=== PATIENT | female | born 1940 | race Caucasian/White ===

== ENCOUNTER → 2019-10-31 | Outpatient (CLI) | payer MEDICARE, SELFPAY ==
--- NOTE | 2019-10-31 10:56 | CT_ITS ---
STUDY: CT ABDOMEN AND PELVIS WITHOUT CONTRAST REASON FOR EXAM: Female, 79 years old. RT SIDED KS, HAVING NO PAIN, MARILYNN/BSO, SCOTTY, HTN RADIATION DOSAGE (If Supplied By Facility): CTDIvol = ( 14.24 ) mGy, DLP = ( 666.45 ) mGycm TECHNIQUE: Transaxial images were obtained from the dome of the diaphragm to the symphysis pubis without oral contrast, and without intravenous contrast. Sagittal and coronal images were reconstructed. Individualized dose optimization techniques were used for this CT. COMPARISON: None. FINDINGS: Mild degree of bronchiectasis at the lung bases. The visualized portions of the heart are within normal limits. Normal liver. There are surgical clips in the gallbladder fossa consistent with a prior cholecystectomy. Normal spleen. Normal pancreas. Normal bilateral adrenal glands. There is a 4 mm calculus in the upper pole calyx of the right kidney. There is a 7.3 mm calculus in the distal portion of the right ureter just proximal to the right ureterovesical junction. There is evidence of a left parapelvic cyst measuring 3.5 cm x 2.6 cm. There is a small hiatal hernia. Normal small intestine. Normal colon. The appendix is visualized and appears normal. There is diffuse atherosclerotic calcification of the abdominal aorta, without a demonstrated aneurysm. Normal inferior vena cava. There is borderline retroperitoneal lymphadenopathy with enlarged nodes no greater than 10mm in the short axis diameter. Normal urinary bladder. There is absence of the uterus consistent with a prior hysterectomy. There is a right-sided inguinal hernia containing adipose tissue. Mild degree of disc space narrowing at the L5-S1 level. CT/Abdomen/Pelvis without Cont IMPRESSION: 7.3 mm calculus in the distal portion of the right ureter just proximal to the right ureterovesical junction. Nonobstructive right intrarenal calculus. Left parapelvic renal cyst. Electronically Signed: Chris Samuel, at 12:08 EDT , Service support ,
== END | disposition home or self-care (01) ==
PROVIDERS: PCP Family Medicine; Referring Provider Nurse Practitioner Adult Health; Visit Provider Nurse Practitioner Adult Health
DX: N13.2 Hydronephrosis with renal and ureteral calculous obstruction (principal)
CPT/HCPCS: 74176; 82360

== ENCOUNTER 2019-11-08 07:13 | Day surgery (SDC) | payer MEDICARE, SELFPAY ==
[2019-11-08] VITALS (8 sets, daily range): BP systolic 140–163; BP diastolic 58–87; PULSE 66–84; RESP 14–17; TEMP 35.8–36.6; O2SAT 95–99; BMI 30.9
[2019-11-08] MEDS: Lactated Ringers 1,000 ML 100 ML IV (08:05)
--- NOTE | 2019-11-08 09:20 | CALC_PTH ---
PATIENT: MELBA FRYE [place] [facility] [place][id number] AGE/SX: 79/F ROOM: RE11/08/[address]: Dr. Raj Dumont MD : [id number] BED: DIS: 11/08/2019 SPEC #: [id number] RECD: 11/08/19 15:00 STATUS: ERNESTINE LEANDRA #: [id number] ERIC: 11/08/19 09:[address]: Raj Dumont DEPT: SURGICAL PATHOLOGY RECD BY: Real Nicholson ENTERED: 11/09/19 09:36 SP TYPE: Calculi OTHR DR: Dr. David Robles MD Tissues: CALCULI Procedures: Surgery Specimen Level I HEADER OPERATION: Cysto, ureteroscopy, laser, stent PRE-OP DIAGNOSIS: Stone distal right ureter, hydronephrosis TISSUE SUBMITTED: Calculi GROSS DIAGNOSIS Fragments of stone, clinically stone distal right ureter, submitted entirely for analysis. SJ:velia 11/09/19 COMMENT The calculus is submitted in its entirety for chemical stone analysis. The results from this study will be reported separately. GROSS DESCRIPTION Received in saline is one container labeled with the patient's name and designated right calculi for stone analysis. The specimen consists of multiple fragments of stone that in aggregate measure 1.5 x 0.3 x 0.1 cm. The entire specimen is submitted for stone analysis. / SAMEERA:velia 11/09/19 CPT: 74737
[2019-11-08] MEDS: Cefazolin 2 GM in 0.9% Normal Saline 100 ML IV (09:47)
--- NOTE | 2019-11-08 10:41 | PCM.HP.STD ---
Problem List (1) Right ureteral calculus Status: Acute History of Present Illness Date of Admission: 11/08/19 Chief Complaint: Right ureteral calculi The patient is a 79 year old female who presented with obstructing stone in distal right ureter today with plan proceed with ureteroscopy and laser lithotripsy and stent placement on the right side. Past Medical History Allergies erythromycin base Allergy (Verified 11/06/19 11:41) Itching EYE OINTMENT Home Medications: Ambulatory Orders Medication Instructions Recorded Aspirin E.C. [Ecotrin] 81 mg PO DAILY@0800 11/06/19 Cholecalciferol (Vitamin D3) 1 tab PO DAILY 11/06/19 [Vitamin D3] Diltiazem HCl [Diltiazem 24Hr ER] 300 mg PO DAILY 11/06/19 Glucosamine HCl 1,000 mg PO DAILY 11/06/19 Smoking Status: Never smoker Tobacco Use: Non-smoker Review of Systems Constitutional: Denies: Chills, Fever, Weight Change HEENT: Denies: Head Aches, Sinus Congestion, Sinus Drainage Cardiovascular: Denies: Chest Pain, Palpitations Respiratory: Denies: Cough, Shortness of breath at rest, Sputum production Gastrointestinal: Denies: Abdominal Pain, Nausea, Vomiting Genitourinary: Denies: Dysuria Musculoskeletal: Denies: Joint Pain, Joint Tenderness Skin: Denies: Rash, Wounds Neurological: Denies: Numbness, Tingling, Focal weakness Psychiatric: Denies: Anxiety, Depression, Homicidal Ideations, Suicidal Ideations Hematologic/ Lymphatic: Denies: Easy Bruising, Easy Bleeding VTE Information - Inpt Only VTE Present on Admission: No VTE Mechan Device Prophylaxis: SCD's Patient Problems: Active and Suspected Problems Right ureteral calculus (Acute) - Physical Exam Vitals/I&O's: Vital Signs Temp Pulse Resp BP Pulse Ox 97.8 F 66 16 145/87 H 97 11/08/19 07:53 11/08/19 07:53 11/08/19 07:53 11/08/19 07:53 11/08/19 07:53 Oxygen Delivery Method Room Air Weight: 87 kg Body Mass Index (BMI) 30.9 Intake and Output for Last 24 Hours 11/06/19 11/07/19 11/08/19 23:59 23:59 23:59 Intake Total 110 / 110 Balance 110 / 110 General: Alert, Oriented x3, Cooperative HEENT: Atraumatic, PERRLA, EOMI, Normocephalic Neck: Supple, No JVD, Negative Carotid Bruits Lungs: Clear to auscultation, Normal air movement Cardiovascular: Regular rate, No murmurs Abdomen: Bowel Sounds Present, Soft, Non Tender Extremities: No edema, Capillary Refill Less than 3 Seconds Skin: No rashes, No breakdown Musculoskeletal: No Tenderness to Palpation of Joints or Extremities Neurological: Cranial nerves II-XII grossly intact Psych/Mental Status: Normal Affect, Appropriate Current Medications Lactated Ringer's () 1,000 mls @ 100 mls/hr IV .Q10H SANDEE Last Admin: 11/08/19 08:05 Dose: 100 mls/hr Documented by: Assessment/Plan All Active Problems Right ureteral calculus (Acute) Plan for right ureteroscopy laser and stent.
--- NOTE | 2019-11-08 10:43 | PCM.DC.URO ---
Discharge Diet: Light diet - advance as tolerated Discharge Activity: Return to Normal Activity Allergies/Adverse Reactions: Allergies erythromycin base Allergy (Verified 11/06/19 11:41) Itching EYE OINTMENT Medications to take at Discharge Aspirin E.C. [Ecotrin] 81 mg PO DAILY@0800 11/06/19 Cholecalciferol (Vitamin D3) [Vitamin D3] 1 tab PO DAILY 11/06/19 Diltiazem HCl [Diltiazem 24Hr ER] 300 mg PO DAILY 11/06/19 Glucosamine HCl 1,000 mg PO DAILY 11/06/19 Ciprofloxacin [Cipro] 500 mg PO BID #6 tab 11/08/19 The following prescriptions were given: Ciprofloxacin [Cipro] 500 mg PO BID #6 tab Transmission Status: Pending to [id number] Primary Care Physician: David Robles MD [Primary Care Provider] - Test Results: Test results from this visit will be discussed in further detail at your follow-up appointment, if applicable. Please Follow Up With: Raj Dumont MD When: please call to make an appointment.
--- NOTE | 2019-11-08 10:44 | OP.PCM_ITS ---
Problem List (1) Right ureteral calculus Status: Acute Report of Operation Date of Procedure: 11/08/19 Pre-Operative Diagnosis: Right ureteral calculi Post-Operative Diagnosis: The same Surgery/Procedure Performed:: Cystoscopy, balloon dilation of the right ureter, right ureteroscopy laser lithotripsy of stone and stent placement. Interpretation fluoroscopic images. Description of Surgical Findings:: 79-year-old female was taken back to the operating room after smooth induction of general anesthesia she was placed in dorsolithotomy position. The urethra vaginally are prepped and draped in usual sterile fashion, went into the bladder with a 21 Croatian rigid cystourethroscope cannulated the right ureteral orifice with a Glidewire advanced a wire up could feel the stone and advance a wire past the stone all the way to the kidney and then over the wire went in with a SlimLine rigid ureteroscope was able to get in the ureter quite easily I then pulled out the wire and then proceeded with laser lithotripsy of the stone I used a 270 ?m laser fiber and perform laser lithotripsy of the stone and still the stone was tiny little pieces I then used a basket to basket out all the fr agments. I put a wire back up in the kidney I then tried to go up the kidney with a flexible ureteroscope I was unable to get through the ureter so I balloon dilated the ureter with a 12 Croatian balloon dilator. After this was accomplished then I was able to get in the kidney inspected the upper pole midpole lower pole the kidney there is no tumors or stones seen within the kidney no major fragments were my way down the ureter a little tortuosity in the upper part of the ureter but then the entire length the ureter was clear all the major fragments of clear to all of the ureter I then loaded a stent up advanced a stent up into the kidney and over the wire I placed a stent up in the kidney in good position. Interpretation fluoroscopic images, fluoroscopy was used to position the stent the stent was advanced over the wire up into the kidney and then once in good position the wire was pulled and the stent coiled in the good position the upper pole the kidney. Type of Anesthesia:: General Drains: stent right side - Admit VTE Documentation VTE Present on Admission: No VTE Mechan Device Prophylaxis: SCD's
--- NOTE | 2019-11-08 11:13 | EKG12_ITS ---
Test Reason : POST OP Blood Pressure : / mmHG Vent. Rate : 079 BPM Atrial Rate : 079 BPM P-R Int : 196 ms QRS Dur : 154 ms QT Int : 448 ms P-R-T Axes : 057 -34 139 degrees QTc Int : 513 ms Normal sinus rhythm Left axis deviation Left bundle branch block Abnormal ECG When compared with ECG of 15-MAR-2009 05:35, No significant change was found Confirmed by MARIVEL RODRIGUEZ, CONCHA ([id number]), market editor MAGGY RUTH ([id number]) on 11/13/2019 1:31:52 PM Referred By: Raj Dumont Confirmed By:CONCHA ORTA MD
== END 2019-11-08 13:04 | disposition home or self-care (01) ==
LOC: SDC 07:14 → AC 07:16
PROVIDERS: Anesthesiology; PCP Family Medicine; Referring Provider Urology; Visit Provider Urology
PROC: 0TJ98ZZ Inspection of Ureter, Via Natural or Artificial Opening Endoscopic (ICD-10-PCS; CPT 52352; principal; 2019-11-08 09:10)
DX: N20.1 Calculus of ureter (principal); K21.9 Gastro-esophageal reflux disease without esophagitis; I25.2 Old myocardial infarction; I10 Essential (primary) hypertension; Z11.59 Encounter for screening for other viral diseases; Z79.82 Long term (current) use of aspirin; Z87.442 Personal history of urinary calculi; Z79.899 Other long term (current) drug therapy
CPT/HCPCS: 52356; 76000; 82360; 87635; 88300; 93005; J7120; C2617; J2405; U0003

== ENCOUNTER → 2023-03-31 | Outpatient (CLI) | payer MEDICARE, SELFPAY ==
--- NOTE | 2023-03-31 15:55 | MRI_ITS ---
EXAM: MR LUMBAR SPINE WITHOUT INTRAVENOUS CONTRAST CLINICAL INDICATION: compression fx of L1 L3 -- presumptive osteopenia, patient states attention to T12 as well. TECHNIQUE: Multiplanar and multisequence MR images of the lumbar spine without intravenous contrast. COMPARISON: X-ray 03/29/2023. FINDINGS: VERTEBRAE: There is preservation of the normal lumbar lordosis. Acute compression fracture of L3 with approximately 20% loss of vertebral body height. T12 marrow edema on the right involving the vertebral body and right pedicle. No demonstrated fracture. Possible stress injury. Benign T12 vertebral hemangioma. SPINAL CORD: Unremarkable. Normal position and signal intensity of the conus medullaris. SOFT TISSUES: Parapelvic and cortical renal cysts. DISCS/SPINAL CANAL/NEURAL FORAMINA: T12-L1: Disc dehydration and mild disc space narrowing. Mild, noncompressive spondylotic bar. Normal bilateral facet joints. Normal central canal. Normal bilateral lateral recesses. Normal intervertebral neural foramina. L1-2: Disc dehydration. Normal bilateral facet joints. Normal central canal. Normal bilateral lateral recesses. Normal intervertebral neural foramina. L2-3: Disc dehydration. Mild, noncompressive spondylotic bar. No significant bony retropulsion. Normal bilateral facet joints. Normal central canal. Normal bilateral lateral recesses. Normal intervertebral neural foramina. L3-4: Disc dehydration. Normal bilateral facet joints. Normal central canal. Normal bilateral lateral recesses. Normal intervertebral neural foramina. L4-5: Disc dehydration and mild disc space narrowing. 2 mm anterolisthesis. No spondylolysis. Moderate facet hypertrophy. No disc protrusion or canal stenosis. Foramina are patent. L5-S1: Disc dehydration. Normal bilateral facet joints. Normal central canal. Normal bilateral lateral recesses. Normal intervertebral neural foramina. MRI/Spine Lumbar (Routine) IMPRESSION: Acute L3 compression fracture. T12 marrow edema. Possible stress injury. Mild L4-5 listhesis. Electronically Signed: Sammi Morales MD at 17:32 EST Reading Location ID and State: [id number] / Tel , Service support ,
== END | disposition home or self-care (01) ==
LOC: MRI 15:23
PROVIDERS: PCP Family Medicine; Referring Provider Orthopaedic Surgery; Visit Provider Orthopaedic Surgery
DX: M85.80 Other specified disorders of bone density and structure, unspecified site (principal)
CPT/HCPCS: 72148

== ENCOUNTER → 2023-08-12 | Outpatient (CLI) | payer MEDICARE, SELFPAY | END | disposition home or self-care (01) | PROVIDERS: PCP Family Medicine; Referring Provider Urology; Visit Provider Urology | DX: N20.1 Calculus of ureter (principal) | CPT/HCPCS: 82360 ==